=== PATIENT | male | born 1970 ===

== ENCOUNTER 2017-08-22 18:37 | Emergency (ER) | payer BC, OTHER ==
[2017-08-22 19:14] VITALS: BP 121/68; PULSE 85; RESP 17; TEMP 97.9; O2SAT 98
--- NOTE | 2017-08-22 19:40 | ED PDOC ---
HPI: CCC, URI, Sore Throat Time Seen by Provider: 08/22/17 19:28 Chief Complaint (Nursing): Cough, Cold, Congestion Chief Complaint (Provider): nasal congestion History Per: Patient History/Exam Limitations: no limitations Onset/Duration Of Symptoms: Days (3) Location Of Pain: Sinus/es. denies: Ear(s), Throat, Headache Associated Symptoms: Sinus Drainage, Nasal Congestion. denies: Fever, Chills, Sore Throat, Cough, Sputum, Neck Pain, Myalgias Past Medical History Reviewed: Historical Data, Nursing Documentation, Vital Signs Vital Signs: Last Vital Signs Temp 97.9 F 08/22/17 19:11 Pulse 85 08/22/17 19:11 Resp 17 08/22/17 19:11 BP 121/68 08/22/17 19:11 Pulse Ox 98 08/22/17 19:11 - Medical History PMH: Asthma Denies: Chronic Kidney Disease - Surgical History Surgical History: No Surg Hx - Family History Family History: States: Unknown Family Hx - Home Medications Home Medications: Ambulatory Orders Medication Instructions Recorded Albuterol HFA [Ventolin HFA 90 1 puff IH Q6 PRN #1 inh 06/30/15 mcg/actuation (8 g)] Codeine Phosphate/Promethazi 5 ml PO QID PRN #1 syr 06/30/15 [Promethazine with Codeine 10 mg/5 ml-6.25 mg/] Esomeprazole Magnesium [Nexium 20 mg PO DAILY #21 ecc 03/16/16 24Hr] Prednisone 20 mg PO BID #8 tablet 03/16/16 Amoxicillin/Clavulanate [Augmentin 1 tab PO BID #20 tab 07/07/16 875 MG-125 MG] Cyclobenzaprine [Cyclobenzaprine 10 mg PO TID PRN #15 tab 07/07/16 HCl] Azithromycin [Zithromax] 250 mg PO DAILY #6 tab 10/24/16 Mometasone Furoate [Nasonex] 2 spray NS DAILY PRN #1 each 10/24/16 Promethazine DM [Phenergan DM 5 - 10 ml PO Q8 PRN #120 ml 10/24/16 Syrup] Pseudoephedrine HCl [Sudafed] 1 - 2 tab PO Q8 PRN #30 tablet 01/22/17 DiphenhydrAMINE [Benadryl] 25 mg PO HS PRN #30 cap 08/22/17 Mometasone Furoate [Nasonex] 0.05 mg NS DAILY #1 spry 08/22/17 Pseudoephedrine HCl 120 mg PO BID PRN #30 tablet.er 08/22/17 [Pseudoephedrine ER] - Allergies Allergies/Adverse Reactions: Allergies Allergy/AdvReac Type Severity Reaction Status Date / Time aspirin Allergy RASH Verified 03/16/16 16:14 seafood Allergy RASH Uncoded 08/22/17 19:14 Review of Systems ROS Statement: Except As Marked, All Systems Reviewed And Found Negative (and as per HPI) ENT: Positive for: Nose Discharge, Nose Congestion. Negative for: Nose Pain, Throat Pain, Throat Swelling Respiratory: Negative for: Cough, Shortness of Breath Physical Exam - Reviewed Nursing Documentation Reviewed: Yes Vital Signs Reviewed: Yes - Physical Exam Appears: Positive for: Well, No Acute Distress Head Exam: Positive for: ATRAUMATIC, NORMOCEPHALIC Skin: Positive for: Warm, Dry Eye Exam: Positive for: EOMI, PERRL. Negative for: Conjunctival injection ENT: Positive for: Nasal Congestion (boggy erythematous nasal turbinates). Negative for: Sinus Pain/Drainage, Pharyngeal Erythema, Tonsillar Exudate, Tonsillar Swelling Neck: Positive for: Painless ROM, Supple Cardiovascular/Chest: Positive for: Regular Rate, Rhythm, Chest Non Tender. Negative for: Murmur Respiratory: Positive for: Normal Breath Sounds. Negative for: Wheezing, Respiratory Distress Lymphatic: Negative for: Adenopathy Neurologic/Psych: Positive for: Alert. Negative for: Motor/Sensory Deficits - ECG O2 Sat by Pulse Oximetry: 98 Disposition - Clinical Impression Clinical Impression: Sinus congestion Counseled Patient/Family Regarding: Diagnosis, Need For Followup, Rx Given - Disposition Referrals: Justice Phelps MD [Family Provider] - 08/24/17 ([facility] Disposition: Routine/Home Disposition Time: 19:00 Condition: GOOD Prescriptions: DiphenhydrAMINE [Benadryl] 25 mg PO HS PRN #30 cap PRN Reason: USE AT NIGHT FOR CONGESTION Mometasone Furoate [Nasonex] 0.05 mg NS DAILY #1 spry Pseudoephedrine HCl [Pseudoephedrine ER] 120 mg PO BID PRN #30 tablet.er PRN Reason: nasal congestion Instructions: Rhinosinusitis (ED) Forms: [facility] ED School/Work Excuse Print Language: K[place]I
== END 2017-08-22 19:59 | disposition home or self-care (01) ==
LOC: H.ER 18:37
DX: R09.81 Nasal congestion (principal)

== ENCOUNTER 2018-03-11 19:26 | Emergency (ER) | payer BC ==
[2018-03-11 19:39] VITALS: BP 142/87; PULSE 92; RESP 16; O2SAT 97
--- NOTE | 2018-03-11 20:00 | ED PDOC ---
History of Present Illness History of Present Illness: 47 year old male presents to the emergency department with nasal and sinus congestion for the last two weeks. He denies ear pain, cough or fever. Patient does have body aches. He reports history of frequent sinus infections. PMD: Dr. Justice Phelps MD HPI: Influenza Time Seen by Provider: 03/11/18 19:44 Chief Complaint: Cough, Cold, Congestion Chief Complaint (Provider): congestion History Per: Patient Onset/Duration Of Symptoms: Days (x 2 weeks) Symptoms include: nasal congestion. denies: fever, cough Past Medical History Reviewed: Historical Data, Nursing Documentation, Vital Signs Vital Signs: Last Vital Signs Temp 98.0 F 03/11/18 19:38 Pulse 92 H 03/11/18 19:38 Resp 16 03/11/18 19:38 BP 142/87 03/11/18 19:38 Pulse Ox 97 03/11/18 19:38 - Medical History PMH: Asthma - Surgical History Surgical History: No Surg Hx - Family History Family History: States: No Known Family Hx - Living Arrangements Living Arrangements: With Family - Social History Current smoker - smoking cessation education provided: No Alcohol: None Drugs: Denies - Home Medications Home Medications: Ambulatory Orders Medication Instructions Recorded Albuterol HFA [Ventolin HFA 90 1 puff IH Q6 PRN #1 inh 06/30/15 mcg/actuation (8 g)] Codeine Phosphate/Promethazi 5 ml PO QID PRN #1 syr 06/30/15 [Promethazine with Codeine 10 mg/5 ml-6.25 mg/] Esomeprazole Magnesium [Nexium 20 mg PO DAILY #21 ecc 03/16/16 24Hr] Prednisone 20 mg PO BID #8 tablet 03/16/16 Amoxicillin/Clavulanate [Augmentin 1 tab PO BID #20 tab 07/07/16 875 MG-125 MG] Cyclobenzaprine [Cyclobenzaprine 10 mg PO TID PRN #15 tab 07/07/16 HCl] Azithromycin [Zithromax] 250 mg PO DAILY #6 tab 10/24/16 Mometasone Furoate [Nasonex] 2 spray NS DAILY PRN #1 each 10/24/16 Promethazine DM [Phenergan DM 5 - 10 ml PO Q8 PRN #120 ml 10/24/16 Syrup] Pseudoephedrine HCl [Sudafed] 1 - 2 tab PO Q8 PRN #30 tablet 10/24/16 DiphenhydrAMINE [Benadryl] 25 mg PO HS PRN #30 cap 08/22/17 Mometasone Furoate [Nasonex] 0.05 mg NS DAILY #1 spry 08/22/17 Pseudoephedrine HCl 120 mg PO BID PRN #30 tablet.er 08/22/17 [Pseudoephedrine ER] Amoxicillin/Clavulanate [Augmentin 1 tab PO BID #14 tab 03/11/18 875 MG-125 MG] Fluticasone Nasal [Flonase] 1 spray NS DAILY #1 bottle 03/11/18 Loratadine [Claritin] 10 mg PO DAILY #30 tab 03/11/18 - Allergies Allergies/Adverse Reactions: Allergies Allergy/AdvReac Type Severity Reaction Status Date / Time aspirin Allergy RASH Verified 03/11/18 19:37 seafood Allergy RASH Uncoded 03/11/18 19:37 Review of Systems ROS Statement: Except As Marked, All Systems Reviewed And Found Negative Constitutional: Negative for: Fever ENT: Positive for: Nose Congestion. Negative for: Ear Pain Cardiovascular: Negative for: Chest Pain Respiratory: Negative for: Cough Gastrointestinal: Negative for: Nausea, Vomiting Physical Exam - Reviewed Nursing Documentation Reviewed: Yes Vital Signs Reviewed: Yes - Physical Exam Appears: Positive for: Well, Non-toxic, No Acute Distress Head Exam: Positive for: ATRAUMATIC, NORMAL INSPECTION, NORMOCEPHALIC Skin: Positive for: Normal Color. Negative for: Rash Eye Exam: Positive for: EOMI, Normal appearance, PERRL ENT: Positive for: Pharynx Is (normal), TM Is/Are (normal), Nasal Congestion ( moderate nasal and sinus congestion) Neurologic/Psych: Positive for: Alert, Oriented. Negative for: Motor/Sensory Deficits Medical Decision Making Medical Decision Making: Time: 20:05 Impression: 47 year old male with sinusitis Initial Plan: --Sudafed 60 mg PO Patient is stable and will be discharged home with rx for Claritin, Augmentin and Flonase. He will also be given a referral for an ENT if symptoms persist. Follow up with PMD in 1-2 days. Scribe Attestation: Documented by Merari Veloz, acting as a scribe for Helen Oquendo PA-C Provider Scribe Attestation: All medical record entries made by the Scribe were at my direction and personally dictated by me. I have reviewed the chart and agree that the record accurately reflects my personal performance of the history, physical exam, medical decision making, and the department course for this patient. I have also personally directed, reviewed, and agree with the discharge instructions and disposition. - ECG O2 Sat by Pulse Oximetry: 97 (RA) Pulse Ox Interpretation: Normal Disposition - Clinical Impression Clinical Impression: Sinusitis - Patient ED Disposition Is Patient to be Admitted: No Counseled Patient/Family Regarding: Diagnosis, Need For Followup, Rx Given - Disposition Referrals: Justice Phelps MD [Staff Provider] - Mike Devlin MD [Staff Provider] - Disposition: Routine/Home Disposition Time: 20:28 Condition: STABLE Additional Instructions: Take prescription meds as directed. 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 Prescriptions: Amoxicillin/Clavulanate [Augmentin 875 MG-125 MG] 1 tab PO BID #14 tab Fluticasone Nasal [Flonase] 1 spray NS DAILY #1 bottle Loratadine [Claritin] 10 mg PO DAILY #30 tab Instructions: Sinusitis, Adult (DC) Forms: [employer] ([place]an) Print Language: [id number]
[2018-03-11 20:57] VITALS: TEMP 98.1
== END 2018-03-11 20:54 | disposition home or self-care (01) ==
LOC: H.ER 19:26
DX: J32.9 Chronic sinusitis, unspecified (principal); J45.909 Unspecified asthma, uncomplicated